=== PATIENT | female | born 1995 | race Caucasian/White ===

== ENCOUNTER 2022-06-25 07:09 | Emergency (ER) | payer OTHER ==
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
[2022-06-25] MEDS ORDERED: TETANUS & DIPHTHERIA TOX,ADULT 0.5 ML VIAL ONE (07:55)
[2022-06-25 08:06] VITALS: O2SAT 100
== END 2022-06-25 08:00 | disposition home or self-care (01) ==
LOC: ER 07:09
DX: S50.311A Abrasion of right elbow, initial encounter (principal); S60.512A Abrasion of left hand, initial encounter; Y09 Assault by unspecified means; Z23 Encounter for immunization
CPT/HCPCS: 90471; 90714; 99283

== ENCOUNTER 2024-07-09 23:16 | Emergency (ER) | payer BC, OTHER ==
[2024-07-10] MEDS ORDERED: ACETAMINOPHEN 500 MG TAB ONE (00:23)
[2024-07-10 00:35] LABS: Absolute Eosinophils 0.1 K/uL (0-0.5); Absolute Lymphocytes (CBC) 2.4 K/uL (0.7-4.9); Absolute Monocytes 0.5 K/uL (0.1-1.3); Absolute Neutrophil 3.9 K/uL (1.8-8.0); Basophils % 0.6 % (0-1.3); Eosinophils % 0.8 % (0-4.4); Lymphocytes % 35.2 % (15.3-44.8); MCH 31.3 pg (27.0-35.0); MCHC 34.2 g/dL (32.0-36.0); MCV 91.5 fL (80-100); MPV 9.4 fL (7.6-11.3); Monocytes % 6.9 % (3.3-12.3); Neutrophils % 56.5 % (41.7-73.7); Nucleated Red Blood Cells % 0.1 % (0-0); Platelets 201 thou/uL (152-406); RBC Red Blood Cell Count 3.83 M/uL (3.86-4.86); Red Cell Distribution Width 13.9 % (12.1-15.2)
[2024-07-10 00:45] LABS: Specific Gravity 1.027 (1.005-1.030); Urine Bilirubin NEGATIVE (Negative); Urine Blood Negative (Negative); Urine Clarity Extremely Turbid (Clear); Urine Color Light-Yellow (Yellow); Urine Culture Reflex Order REFLEXED; Urine Glucose NEGATIVE (Negative); Urine Ketones NEGATIVE (Negative); Urine Microscopic Reflex YN NO UMIC; Urine Nitrite NEGATIVE (Negative); Urine Protein TRACE (Negative); Urine Urobilinogen 1+ (Normal)
[2024-07-10 00:56] LABS: Anion Gap 8.6 mEq/L (5.0-15.0); Potassium 3.6 mEq/L (3.5-5.1)
--- NOTE | 2024-07-10 04:04 | ER ---
Nurse's Notes [facility] Name: Amna Hendrix Age: 28 yrs Sex: Female : 1995 Arrival Date: 07/09/2024 Time: 23:16 Bed 19 Private MD: Diagnosis: Unspecified infection of urinary tract in , first trimester Presentation: 07/09 23:37 Chief complaint: Patient states: 5 wks with sharp cramping. Coronavirus vc1 screen: Client denies travel out of the [place] in the last 14 days. At this time, the client does not indicate any symptoms associated with coronavirus-19. Ebola Screen: Patient negative for fever greater than or equal to 101.5 degrees Fahrenheit, and additional compatible Ebola Virus Disease symptoms Patient denies exposure to infectious person. Patient denies travel to an Ebola-affected area in the 21 days before illness onset. No symptoms or risks identified at this time. Initial Sepsis Screen: Does the patient meet any 2 criteria? No. Patient's initial sepsis screen is negative. Does the patient have a suspected source of infection? No. Patient's initial sepsis screen is negative. Onset of symptoms was July 09, 2024. 23:37 Method Of Arrival: Ambulatory vc1 23:39 Risk Assessment: Do you want to hurt yourself or someone else? Patient reports no vc1 desire to harm self or others. 23:39 Acuity: BHUPINDER 3 vc1 Triage Assessment: 23:35 General: Appears in no apparent distress. uncomfortable, well groomed, well developed, vc1 well nourished, Behavior is calm, cooperative, appropriate for age. Pain: Complains of pain in right lower quadrant Pain does not radiate. Pain currently is 4 out of 10 on a pain scale. EENT: No deficits noted. No signs and/or symptoms were reported regarding the EENT system. Neuro: Level of Consciousness is awake, alert, obeys commands, Oriented to person, place, time, situation, Appropriate for age. Cardiovascular: Heart tones S1 S2 present Capillary refill < 3 seconds Patient's skin is warm and dry. Respiratory: Airway is patent Respiratory effort is even, unlabored, Respiratory pattern is regular, symmetrical, Breath sounds are clear bilaterally. GI: Abdomen is flat, non-distended, Reports lower abdominal pain. : No deficits noted. No signs and/or symptoms were reported regarding the genitourinary system. Derm: Skin is intact, is healthy with good turgor, Skin is dry, Skin is normal, Skin temperature is warm. Musculoskeletal: Circulation, motion, and sensation intact. Range of motion: intact in all extremities. 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 - Infectious Disease History:: Denies. - Social history:: Smoking status: Patient denies any tobacco usage or history of. Screenin:39 [facility] ED Fall Risk Assessment (Adult) History of falling in the last 3 months, vc1 including since admission No falls in past 3 months (0 pts) Confusion or Disorientation No (0 pts) Intoxicated or Sedated No (0 pts) Impaired Gait No (0 pts) Mobility Assist Device Used No (0 pt) Altered Elimination No (0 pt) Score/Fall Risk Level 0 - 2 = Low Risk Oriented to surroundings, Maintained a safe environment, Educated pt \T\ family on fall prevention, incl call for assistance when getting out of bed, Hourly rounding (assess needs \T\ fall precautionary measures) done. Abuse screen: Denies threats or abuse. Nutritional screening: No deficits noted. Tuberculosis screening: No symptoms or risk factors identified. Assessment: 23:35 Reassessment: see triage assessment. vc1 07/10 01:06 Reassessment: Patient appears in no apparent distress at this time. No changes from vc1 previously documented assessment. Patient and/or family updated on plan of care and expected duration. Pain level reassessed. Patient is alert, oriented x 3, equal unlabored respirations, skin warm/dry/pink. 01:06 GI: Bowel sounds present X 4 quads. Abd is soft and non tender. vc1 02:25 Reassessment: US in room with patient. cp4 02:57 Reassessment: Patient appears in no apparent distress at this time. No changes from vc1 previously documented assessment. Patient and/or family updated on plan of care and expected duration. Pain level reassessed. Patient is alert, oriented x 3, equal unlabored respirations, skin warm/dry/pink. Vital Signs: 07/09 23:39 BP 122 / 83; Pulse 89; Resp 16; Temp 97.7; Pulse Ox 99% ; Weight 76.2 kg; Height 5 ft. vc1 2 in. ; Pain 4/10; 07/10 01:07 BP 108 / 58; Pulse 75; Resp 15; Pulse Ox 99% ; vc1 03:34 BP 108 / 70; Pulse 72; Resp 16; Pulse Ox 99% ; vc1 07/09 23:39 Body Mass Index 30.73 (76.20 kg, 157.48 cm) vc1 07/09 23:39 Pain Scale: Adult vc1 ED Course: 07/09 23:19 Patient arrived in ED. mr 23:20 Jayjay Zayas PA is PHCP. cp 23:20 Pavan Gleason MD is Attending Physician. cp 23:39 Arm band placed on right wrist. vc1 23:40 Triage completed. vc1 07/10 00:17 Dora Irvin, RN is Primary Nurse. vc1 00:46 Inserted saline lock: 22 gauge in right antecubital area, using aseptic technique. kmf Blood collected. Flushed with 10 mL NS. 00:46 Initial lab(s) drawn, by tn, sent to lab. Urine collected: clean catch specimen, clear. kmf 01:07 Patient has correct armband on for positive identification. Bed in low position. Call vc1 light in reach. Provided Education on: Plan of care. Pulse ox on. NIBP on. 02:39 Transvaginal OB In Process Unspecified. EDMS 04:03 Pavan Gleason MD is Referral Physician. rt 04:03 Referral Physician role handed off by Pavan Gleason MD rt 04:45 No provider procedures requiring assistance completed. IV discontinued, intact, br2 bleeding controlled, No redness/swelling at site. Pressure dressing applied. Administered Medications: 00:46 Drug: Acetaminophen PO 1000 mg PO once Route: PO; vc1 02:57 Follow up: Response: No adverse reaction vc1 Medication: 07/09 23:40 VIS not applicable for this client. vc1 Outcome: 07/10 04:03 Discharge ordered by . rt 04:45 Discharged to home br2 04:45 Condition: good 04:45 Discharge instructions given to patient, Instructed on discharge instructions, follow up and referral plans. Demonstrated understanding of instructions, follow-up care, Prescriptions given X 1, 04:46 Patient left the ED. br2 Signatures: Dispatcher [employer] EDMS LizamaCarly billings, Reg Reg mr Jayjay Zayas, Dora Maxwell cp RN RN vc1 Pavan Gleason MD MD rt Potter, Christina cp4 Fidelina Crandall Belinda RN RN br2
--- NOTE | 2024-07-10 04:04 | EDPHYS ---
Physician Documentation [facility] Name: Amna Hendrix Age: 28 yrs Sex: Female : 1995 Arrival Date: 07/09/2024 Time: 23:16 Bed 19 Private MD: ED Physician Pavan Gleason HPI: 07/09 23:50 This 28 yrs old Female presents to ER via Ambulatory with complaints of 5wks , cp Abdominal Cramping. 23:50 The patient presents to the emergency department with abdominal pain, of the right cp lower quadrant and left lower quadrant, that started today, described as crampy. The estimated gestational age is 5 weeks. course: care: none, Ultrasound: the patient had an ultrasound. Associated signs and symptoms: Pertinent negatives: dysuria, fever, ruptured membranes, vaginal bleeding, vaginal discharge, vomiting. 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 - Infectious Disease History:: Denies. - Social history:: Smoking status: Patient denies any tobacco usage or history of. ROS: 23:55 Constitutional: Negative for body aches, chills, fever, poor PO intake, cp 23:55 Eyes: Negative for injury, pain, redness, and discharge, cp 23:55 Cardiovascular: Negative for chest pain, palpitations, 23:55 Respiratory: Negative for cough, shortness of breath, wheezing, 23:55 Abdomen/GI: Positive for abdominal pain, of the right lower quadrant and left lower quadrant, right worse than left, Negative for vomiting, diarrhea, constipation, 23:55 Back: Negative for pain at rest, pain with movement, 23:55 : Negative for urinary symptoms, vaginal bleeding, vaginal discharge, 23:55 All other systems are negative, Exam: 23:55 Head/Face: Normocephalic, atraumatic. cp 23:55 Constitutional: The patient appears in no acute distress, alert, awake, non-toxic, well developed, well nourished, 23:55 Eyes: Periorbital structures: appear normal, Conjunctiva: normal, no exudate, no injection, Sclera: no appreciated abnormality, Lids and lashes: appear normal, bilaterally, 23:55 ENT: External ear(s): are unremarkable, Nose: is normal, Mouth: Lips: moist, Oral mucosa: moist, 23:55 Chest/axilla: Inspection: normal, 23:55 Cardiovascular: Rate: normal, 23:55 Respiratory: the patient does not display signs of respiratory distress, Respirations: normal, no use of accessory muscles, no retractions, labored breathing, is not present, Breath sounds: are clear throughout, no decreased breath sounds, no stridor, no wheezing, 23:55 Abdomen/GI: Inspection: abdomen appears normal, Bowel sounds: active, all quadrants, Palpation: soft, in all quadrants, mild abdominal tenderness, in the right lower quadrant, rebound tenderness, is not appreciated, involuntary guarding, is not appreciated, 23:55 Back: CVA tenderness, is absent, 23:55 Neuro: Orientation: to person, place \T\ time. Mentation: is normal, Vital Signs: 23:39 BP 122 / 83; Pulse 89; Resp 16; Temp 97.7; Pulse Ox 99% ; Weight 76.2 kg; Height 5 ft. vc1 2 in. ; Pain 4/10; 07/10 01:07 BP 108 / 58; Pulse 75; Resp 15; Pulse Ox 99% ; vc1 03:34 BP 108 / 70; Pulse 72; Resp 16; Pulse Ox 99% ; vc1 07/09 23:39 Body Mass Index 30.73 (76.20 kg, 157.48 cm) vc1 07/09 23:39 Pain Scale: Adult vc1 MDM: 07/09 23:34 Medical Screening Exam initiated cp 07/10 04:36 Differential diagnosis: Early IUP, ectopic , asymptomatic bacteria in rt . Data reviewed: vital signs, nurses notes, lab test result(s), radiologic studies. I considered the following discharge prescriptions or medication management in the emergency department Medications were administered in the Emergency Department. See MAR. Counseling: I had a detailed discussion with the patient and/or guardian regarding the historical points, exam findings, and any diagnostic results supporting the discharge/admit diagnosis, lab results, radiology results, the need for outpatient follow up. 07/09 23:44 Order name: Abo/rh Typing; Complete Time: 01:41 cp 07/09 23:44 Order name: Basic Metabolic Panel; Complete Time: 01:41 cp 07/09 23:44 Order name: CBC with Diff; Complete Time: 00:53 cp 07/10 00:53 Interpretation: Normal except: RBC 3.83; HCT 35.0. cp 07/09 23:44 Order name: Quantitative Hcg; Complete Time: 01:41 cp 07/10 01:42 Interpretation: HCGQ 6122; Reviewed. 07/09 23:44 Order name: UA Rfx Shakir Cult if indicated; Complete Time: 00:53 cp 07/10 00:53 Interpretation: Normal except: [facility] Extremely Turbid; UPH 8.0; UPROT TRACE; UUROB 1+; cp UESTR 250. 07/10 00:50 Order name: Urine Culture EDIA 07/10 02:39 Order name: Transvaginal OB EDIA 07/09 23:44 Order name: IV Saline Lock; Complete Time: 00:47 cp 07/09 23:44 Order name: Labs collected and sent; Complete Time: 00:47 cp 07/09 23:44 Order name: NPO; Complete Time: 00:18 cp Administered Medications: 00:46 Drug: Acetaminophen PO 1000 mg PO once Route: PO; vc1 02:57 Follow up: Response: No adverse reaction vc1 Disposition: 04:36 Co-signature as Attending Physician, Pavan Gleason MD I reviewed the patient's care rt provided by Advanced Practice Provider \T\ agree w/ the diagnosis \T\ care plan. I personally saw the pt \T\ performed a substantive portion of the visit, incldng all aspects of the (History/Exam/Medical Decision Making). Disposition Summary: 07/10/24 04:03 Discharge Ordered Notes: Location: Home rt Problem: new rt Symptoms: have improved rt Condition: Stable rt Diagnosis - Unspecified infection of urinary tract in , first trimester rt Followup: rt - With: Private Physician - When: 2 - 3 days - Reason: Discharge Instructions: - Discharge Summary Sheet rt - First Trimester of rt Forms: - Medication Reconciliation Form rt - Antibiotic Education rt - Prescription Opioid Use rt - Patient Portal Instructions rt - Leadership Thank You Letter rt Prescriptions: - Cephalexin 500 mg Oral capsule - take 1 capsule ORAL route every 8 hours for 7 days; 21 capsule; Refills: 0, rt Product Selection Permitted Signatures: Dispatcher [employer] EDMS Jayjay Zayas PA PA cp Calcote, Vanessa, RN RN vc1 Pavan Gleason MD MD rt Corrections: (The following items were deleted from the chart) 07/09 23:44 23:44 ABO/RH TYPING+BB.LAB.BRZ ordered. EDMS EDMS :44 23:44 BASIC METABOLIC PANEL+C.LAB.BRZ ordered. EDMS EDMS : 23:44 CBC+H.LAB.BRZ ordered. EDMS EDMS :44 23:44 Test, Urine+UC.LAB.BRZ ordered. EDMS EDMS : 23:44 QUANTITATIVE HCG+C.LAB.BRZ ordered. EDMS EDMS : 23:44 UA Rfx Shakir Cult if indicated+U.LAB.BRZ ordered. EDMS EDMS 07/10 02:39 02:19 OB Complete+US.RAD.BRZ ordered. EDMS EDMS
[2024-07-10 04:57] VITALS: TEMP 97.7; O2SAT 99
[2024-07-10 05:12] VITALS: BP 108/70
--- NOTE | 2024-07-10 08:05 | RAD REPORT ---
EXAM DESCRIPTION: Transvaginal OB CLINICAL HISTORY: 28 years Female, abd pain, COMPARISON: None. TECHNIQUE: Complete first trimester obstetrical ultrasound obtained with transverse vaginal imaging. FINDINGS: Uterus: The uterus measures 8.3 x 5.2 x 6.0 cm. Gestational sac: Possible gestational sac with a mean sac diameter of 0.8 cm. pole: Not identified. heart motion: Not identified. Yolk sac: Faint ovoid structure in the possible gestational sac may represent a yolk sac. Placenta: Not identified. Right ovary: 2.1 x 1.3 x 1.6 cm Left ovary: 3.5 x 1.9 x 2.9 cm. 1.8 cm left ovarian corpus luteal cyst. No follow-up imaging for the structure recommended. Adnexa: No additional adnexal findings. Free fluid: No free fluid. Duplex imaging: Color and spectral Doppler imaging demonstrate blood flow in the ovaries. IMPRESSION: 1. Possible intrauterine with estimated gestational age of 5 weeks, 3 days by crown-rump le ngth. No pole identified. Differential considerations include early normal and anembryonic . Close continued clinical, laboratory, and sonographic follow-up recommended. Electronically signed by: Raymond Swartz DO 07/10/2024 03:49 AM CDT 4ZDM Due to temporary technical issues with the PACS/Ricebook reporting system, reports are being irma d by the in-house radiologist without review as a courtesy to ensure prompt reporting the interpreting radiologist is fully responsible for the content of the report. Transcribed Date/Time: 07/10/2024 8:05 AM
== END 2024-07-10 04:46 | disposition home or self-care (01) ==
LOC: ER 23:16
DX: O23.41 Unspecified infection of urinary tract in pregnancy, first trimester (principal); Z3A.01 Less than 8 weeks gestation of pregnancy
CPT/HCPCS: 36415; 76817; 80048; 81003; 84702; 85025; 86900; 86901; 87086; 87088; 99284